=== PATIENT | female | born 1965 | race Caucasian/White ===

== ENCOUNTER 2024-05-30 05:44 | Observation (INO) ==
[~2024-05-30 05:44] MED LIST: Lactated Ringers 1000 ml BAG 1,000 ML IV SCH; Metoclopramide 5 MG/ML VIAL (10 mg) IV PRN; NS 0.45% 1000 ml BAG 1,000 ML IV SCH; Naloxone 0.4 mg VIAL 0.4 mg/ml 1 ml VIAL IV PRN; Ondansetron 4 mg VIAL 2 MG/ML 2 ml VIAL IV PRN; fentaNYL 100 mcg/2 ml 50 MCG/ML VIAL IV PRN
[2024-05-30] MEDS ORDERED: ceFAZolin 2 GM in NS PREMIX 2 GM/100 ML BAG IVPB ONE (06:18)
[2024-05-30] MEDS ORDERED: Tranexamic Acid 1 GM/100ML BAG 0 MG/0 ML BAG IV ONE (06:18)
[2024-05-30 06:59] LABS: Rapid COVID-19 Molecular Undetected (Undetected)
[2024-05-30] MEDS ORDERED: Midazolam 5 mg/5 ml VIAL 1 mg/ml 5 ml VIAL (5 mg) ONE (06:59)
[2024-05-30] MEDS ORDERED: ROPIVACAINE 5 MG/ML 30 ML BTL (0.5%) ONE ×2 (06:59→07:04)
[2024-05-30] MEDS ORDERED: Lidocaine 2% PF 5 ML VIAL ONE (07:09)
[2024-05-30] MEDS ORDERED: Propofol 10 MG/ML 20 ML BTL ONE ×4 (07:09→09:52)
[2024-05-30] MEDS ORDERED: Phenylephrine IV 10 MG/ML 1 ml VIAL ONE (07:09)
[2024-05-30] MEDS ORDERED: fentaNYL 100 mcg/2 ml 50 MCG/ML VIAL ONE (07:10)
[2024-05-30] MEDS ORDERED: Midazolam 2 mg/2 ml VIAL 1 mg/ml 2 ml VIAL (2 mg) ONE (07:15)
[2024-05-30] MEDS ORDERED: Rocuronium 50 mg VIAL 10 mg/ml 5 ml VIAL (50 mg) ONE (07:29)
[2024-05-30] MEDS ORDERED: HYDROmorphone 0.5 MG/0.5 ML SYRINGE ONE ×3 (07:49)
[2024-05-30] MEDS ORDERED: Ondansetron 4 mg VIAL 2 MG/ML 2 ml VIAL ONE (07:52)
[2024-05-30] MEDS ORDERED: Dexamethasone IV 4 MG/ML VIAL 1 ml VIAL ONE (07:52)
[2024-05-30] MEDS ORDERED: Acetaminophen IV 1 GM/100ML 1,000 MG/100 ML BAG IV ONE (08:29)
[2024-05-30] MEDS ORDERED: Lactulose 30 ml UDC PO PRN (10:23)
[2024-05-30] MEDS ORDERED: Morphine 2 MG/ML SYRINGE IV PRN (10:23)
[2024-05-30] MEDS ORDERED: Ondansetron ODT 4 mg TAB 4 MG TAB PO PRN (10:23)
[2024-05-30] MEDS ORDERED: Ondansetron 4 mg VIAL 2 MG/ML 2 ml VIAL IV PRN (10:23)
[2024-05-30] MEDS ORDERED: Magnesium Hydroxide LIQ 30 ML UDC PO PRN (10:23)
[2024-05-30] MEDS ORDERED: Calcium Carb (TUMS) 500 mg CHEW TAB PO PRN (10:23)
[2024-05-30] MEDS: Lactated Ringers 1000 ml BAG 1,000 ML IV SCH (12:07)
[2024-05-30] MEDS: Acetaminophen IV 1 GM/100ML 1,000 MG/100 ML BAG IV ONE (13:00)
[2024-05-30] MEDS: Scopolamine 1 mg/72hr PATCH TRANSDERM ONE (13:01)
[2024-05-30] MEDS: Buffered Lidocaine 1% SYRIN 1 ml INTRADERM ONE (13:01)
[2024-05-30] MEDS: ceFAZolin 2 GM PREMIX 2 GM/50 ML BAG IV SCH (15:52)
[2024-05-30 17:22] VITALS: BP 116/87
[2024-05-30] MEDS ORDERED: Magnesium Hydroxide LIQ 30 ML UDC PO SCH (21:00)
[2024-05-31] MEDS ORDERED: Vitamin THERAPEUTIC TAB PO SCH (09:00)
== END 2024-05-30 11:30 | disposition home or self-care (01) ==
LOC: SSU 05:44 → OR 05:44
PROVIDERS: ADMIT Orthopaedic Surgery Adult Reconstructive Orthopaedic Surgery; ATTEND Orthopaedic Surgery Adult Reconstructive Orthopaedic Surgery

== ENCOUNTER 2024-11-28 05:50 | Observation (INO) ==
[2024-11-28] MEDS ORDERED: ceFAZolin 2 GM PREMIX 0 GM/0 ML BAG ONE (06:05)
[2024-11-28] MEDS ORDERED: Tranexamic Acid 1 GM/100ML BAG 2,000 MG/200 ML BAG IV ONE (06:05)
[2024-11-28] MEDS ORDERED: ROPIVACAINE 5 MG/ML 30 ML BTL (0.5%) ONE ×2 (06:27→07:08)
[2024-11-28 06:38] LABS: Rapid COVID-19 Molecular Undetected (Undetected)
[2024-11-28] MEDS ORDERED: Midazolam 5 mg/5 ml VIAL 1 mg/ml 5 ml VIAL (5 mg) ONE (07:08)
[2024-11-28] MEDS ORDERED: HYDROmorphone 0.5 MG/0.5 ML SYRINGE ONE ×2 (07:14→08:39)
[2024-11-28] MEDS ORDERED: Propofol 10 MG/ML 20 ML BTL ONE ×4 (07:14→09:48)
[2024-11-28] MEDS ORDERED: Rocuronium 50 mg VIAL 10 mg/ml 5 ml VIAL (50 mg) ONE (07:14)
[2024-11-28] MEDS ORDERED: Lidocaine 2% PF 5 ML VIAL ONE (07:14)
[2024-11-28] MEDS ORDERED: fentaNYL 100 mcg/2 ml 50 MCG/ML VIAL ONE ×2 (07:20→10:34)
[2024-11-28] MEDS ORDERED: Acetaminophen IV 1 GM/100ML 1,000 MG/100 ML BAG IV ONE (07:26)
[2024-11-28] MEDS ORDERED: Metoclopramide 5 MG/ML VIAL (10 mg) IV PRN (07:37)
[2024-11-28] MEDS ORDERED: Ondansetron 4 mg VIAL 2 MG/ML 2 ml VIAL IV PRN ×2 (07:37→10:27)
[2024-11-28] MEDS ORDERED: Naloxone 0.4 mg VIAL 0.4 mg/ml 1 ml VIAL IV PRN (07:37)
[2024-11-28] MEDS ORDERED: Scopolamine 1 mg/72hr PATCH ONE (07:56)
[2024-11-28] MEDS ORDERED: Dexamethasone IV 4 MG/ML VIAL 1 ml VIAL ONE (07:58)
[2024-11-28] MEDS ORDERED: NS 0.45% 1000 ml BAG 1,000 ML IV SCH (08:00)
[2024-11-28] MEDS ORDERED: Glycopyrrolate IV 0.2 MG/ML 1 ML VIAL ONE (08:33)
[2024-11-28] MEDS ORDERED: Magnesium Hydroxide LIQ 30 ML UDC PO PRN (10:27)
[2024-11-28] MEDS ORDERED: Ondansetron ODT 4 mg TAB 4 MG TAB PO PRN (10:27)
[2024-11-28] MEDS ORDERED: Morphine 2 MG/ML SYRINGE IV PRN (10:27)
[2024-11-28] MEDS ORDERED: Calcium Carb (TUMS) 500 mg CHEW TAB PO PRN (10:27)
[2024-11-28] MEDS ORDERED: Lactulose 30 ml UDC PO PRN (10:27)
[2024-11-28] MEDS: fentaNYL 100 mcg/2 ml 50 MCG/ML VIAL IV PRN (10:39)
[2024-11-28] MEDS: Buffered Lidocaine 1% SYRIN 1 ml INTRADERM ONE (11:01)
[2024-11-28] MEDS: Scopolamine 1 mg/72hr PATCH TRANSDERM ONE (11:01)
[2024-11-28] MEDS: Acetaminophen IV 1 GM/100ML 1,000 MG/100 ML BAG IV ONE (11:01)
[2024-11-28] MEDS: Lactated Ringers 1000 ml BAG 1,000 ML IV SCH ×2 (11:02→12:18)
[2024-11-28 15:13] VITALS: BP 123/79
[2024-11-28] MEDS: ceFAZolin 2 GM PREMIX 2 GM/50 ML BAG IV SCH (15:18)
[2024-11-28] MEDS ORDERED: Magnesium Hydroxide LIQ 30 ML UDC PO SCH (21:00)
[2024-11-29] MEDS ORDERED: Vitamin THERAPEUTIC TAB PO SCH (09:00)
== END 2024-11-28 17:30 | disposition home or self-care (01) ==
LOC: SSU 05:50 → OR 05:50
PROVIDERS: ADMIT Orthopaedic Surgery Adult Reconstructive Orthopaedic Surgery; ATTEND Orthopaedic Surgery Adult Reconstructive Orthopaedic Surgery